=== PATIENT | male | born 1960 | race Caucasian/White ===

== ENCOUNTER 2023-03-22 13:21 | Outpatient (CLI) | payer OTHER | END 2023-03-22 13:22 | disposition home or self-care (01) | LOC: CSHMRI 13:21 | PROVIDERS: ATTEND Orthopaedic Surgery | DX: S46.012A Strain of muscle(s) and tendon(s) of the rotator cuff of left shoulder, initial encounter (principal); S46.212A Strain of muscle, fascia and tendon of other parts of biceps, left arm, initial encounter; S43.432A Superior glenoid labrum lesion of left shoulder, initial encounter ==

== ENCOUNTER 2025-05-11 05:58 | Day surgery (SDC) | payer OTHER ==
[2025-05-04 14:26] VITALS: BMI 28.0
[2025-05-11] MEDS ORDERED: PROPOFOL 40 ML ONE (07:24)
[2025-05-11] MEDS ORDERED: Lidocaine 1% PF 5 ML VIAL ONE (07:25)
== END 2025-05-11 08:40 | disposition home or self-care (01) ==
LOC: CSHSDC 05:58
PROVIDERS: ATTEND Surgery
PROC: 0DBH8ZX Excision of Cecum, Via Natural or Artificial Opening Endoscopic, Diagnostic (ICD-10-PCS; principal; 2025-05-11)
DX: D64.9 Anemia, unspecified (principal); K63.5 Polyp of colon; D12.6 Benign neoplasm of colon, unspecified; I10 Essential (primary) hypertension; F17.200 Nicotine dependence, unspecified, uncomplicated; Z88.8 Allergy status to other drugs, medicaments and biological substances
CPT/HCPCS: 88305; J2704